=== PATIENT | female | born 1980 | race Caucasian/White ===

== ENCOUNTER 2018-05-25 15:19 | Emergency (ER) | payer MEDICAID, OTHER, SELFPAY ==
[~2018-05-25] VITALS: Ht 167.6 cm; Wt 79.5 kg
[2018-05-25 15:21] VITALS: BP 134/87
[2018-05-25] MEDS ORDERED: LEVO150T PO (15:26)
[2018-05-25] MEDS ORDERED: DIPH,PERTUSS(ACELL),TET VAC/PF 0.5 ML IM-VACC ONE ×2 (15:30→15:54)
[2018-05-25] MEDS ORDERED: ACETAMINOPHEN 500 MG TABLET ONE (15:54)
[2018-05-25] MEDS ORDERED: LIDOCAINE-MPF 1%, 2ML ONE (15:55)
[2018-05-25] MEDS ORDERED: LIDOCAINE-MPF 1%, 5ML INFIL ONE (16:00)
[2018-05-25] MEDS ORDERED: ACETAMINOPHEN 500 MG TABLET PO ONE (16:00)
[2018-05-25] MEDS ORDERED: BACITRACIN ZINC OINT 500U/GM, 0.9 GM ONE (17:32)
== END 2018-05-25 18:04 | disposition home or self-care (01) ==
LOC: ED 16:32
DX: S02.2XXA Fracture of nasal bones, initial encounter for closed fracture (principal); S01.511A Laceration without foreign body of lip, initial encounter; F17.200 Nicotine dependence, unspecified, uncomplicated; Y04.0XXA Assault by unarmed brawl or fight, initial encounter; Y93.89 Activity, other specified; Y99.8 Other external cause status; Y92.009 Unspecified place in unspecified non-institutional (private) residence as the place of occurrence of the external cause
CPT/HCPCS: 12051; 70486; 90471; 90715

== ENCOUNTER 2018-05-30 06:45 | Emergency (ER) | payer MEDICAID ==
[~2018-05-30] VITALS: Ht 162.6 cm; Wt 90.0 kg
[~2018-05-30 06:45] MED LIST: LEVO150T PO
[2018-05-30 08:12] VITALS: BP 109/58
== END 2018-05-30 08:32 | disposition home or self-care (01) ==
LOC: ED 06:58
DX: S00.12XA Contusion of left eyelid and periocular area, initial encounter (principal); E03.9 Hypothyroidism, unspecified; Y04.0XXA Assault by unarmed brawl or fight, initial encounter; Y93.89 Activity, other specified; Y92.89 Other specified places as the place of occurrence of the external cause; Y99.8 Other external cause status
CPT/HCPCS: 70486; 99284

== ENCOUNTER 2020-07-28 18:00 | Emergency (ER) | payer MEDICAID ==
[~2020-07-28] VITALS: Ht 162.6 cm; Wt 103.0 kg
[2020-07-28 18:04] VITALS: BP 136/79
[2020-07-28] MEDS ORDERED: LIDOCAINE-MPF 1%, 5ML ONE (18:21)
[2020-07-28] MEDS ORDERED: DIPH,PERTUSS(ACELL),TET VAC/PF 0.5 ML IM-VACC ONE ×2 (19:00→19:09)
[2020-07-28] MEDS ORDERED: NEOSPORIN OINT. PKT 1 PACKET ONE (19:05)
== END 2020-07-28 19:25 ==
LOC: ED 19:20
DX: S61.211A Laceration without foreign body of left index finger without damage to nail, initial encounter (principal); E03.9 Hypothyroidism, unspecified; F17.210 Nicotine dependence, cigarettes, uncomplicated; X58.XXXA Exposure to other specified factors, initial encounter; Y93.89 Activity, other specified; Y92.69 Other specified industrial and construction area as the place of occurrence of the external cause; Y99.0 Civilian activity done for income or pay
CPT/HCPCS: 12041; 90471; 90715; 99284